=== PATIENT | male | born 1960 | race Asian ===

== ENCOUNTER 2017-12-18 13:57 | Emergency (ER) | payer OTHER ==
[2017-12-18] MEDS ORDERED: ONDANSETRON ODT 4 MG TABLET TL STA (15:05)
--- NOTE | 2017-12-18 15:07 | ED Physician Documentation ---
History of Present Illness - Stated complaint Stated Complaint: VOMITING - Chief complaint Chief Complaint: General - Additonal information Additional information: hx from pt 57 male HTN DM HLD CKD to ER with NV and bloating since yesterday after returning from [place] for his mom is having BM soime upper abd and lowee chest discomfort hx same sx last time he went to [place] doesnt think he ate anything bad no fever cough leg swelling no blood in vomit or BM no prior surgery Review of Systems Constitutional: denies: Fever, Chills Throat: denies: Sore throat Cardiac: reports: Chest pain / pressure (lower) Respiratory: denies: Dyspnea GI: reports: Abdominal Pain (upper), Nausea, Vomiting. denies: Constipation, Diarrhea, Hematemesis, Bloody / black stool : denies: Dysuria, Testicular pain Endocrine: denies: Easy bruising / bleeding Immunocompromised: denies: Immunocompromised PD PAST MEDICAL HISTORY - Present Medications Home Medications: Ambulatory Orders Medication Instructions Recorded Confirmed Aspirin [Adult Aspirin] 1 tab PO DAILY 12/18/17 12/18/17 Atenolol 3 tab PO DAILY 12/18/17 12/18/17 Lisinopril 1 tab PO DAILY 12/18/17 12/18/17 Ondansetron Odt [Zofran] 4 mg TL Q6H PRN #10 tablet 12/18/17 Simvastatin 1 tab PO DAILY 12/18/17 12/18/17 Sitagliptin Phosphate [Januvia] 1 tab PO DAILY 12/18/17 12/18/17 Sucralfate 1 gm PO ACHS #120 tablet 12/18/17 raNITIdine [Zantac] 150 mg PO BID #60 tablet 12/18/17 - Allergies Allergies/Adverse Reactions: Allergies Allergy/AdvReac Type Severity Reaction Status Date / Time No Known Drug Allergies Allergy Verified 12/18/17 14:11 PD ED PE NORMAL - Vitals Vital signs reviewed: Yes - Neck Neck: Supple, no meningeal sign - Cardiac Cardiac: RRR - Respiratory Respiratory: No respiratory distress, Clear bilaterally - Abdomen Abdomen: Soft, Other (mild upper abd TTP non focal no peritoneal sx, neg moore) - Extremities Extremities: No edema, No calf tenderness / cord - Neuro Neuro: Alert and oriented X 3, No motor deficit, No sensory deficit Results - Vitals Vitals: Vital Signs - 24 hr 12/18/17 12/18/17 12/18/17 14:08 14:56 18:13 Temperature 36.7 C 36.9 C Heart Rate 81 72 76 Respiratory 16 16 16 Rate Blood Pressure 168/96 H 163/86 H 120/76 O2 Saturation 97 96 92 Oxygen O2 Source Room air - EKG (time done) 1512 Rate: Rate (enter#) (68) Rhythm: NSR Ischemia: Other (inv T ant) - Labs Labs: Laboratory Tests 12/18/17 12/18/17 12/18/17 15:29 15:29 15:29 WBC 12.5 H RBC 5.60 Hgb 17.8 Hct 53.6 H MCV 95.7 H MCH 31.8 H MCHC 33.2 RDW 13.7 Plt Count 217 MPV 8.6 Neut # (Auto) 8.9 H Lymph # (Auto) 2.1 [place] # (Auto) 1.2 H Eos # (Auto) 0.2 Baso # (Auto) 0.1 Absolute Nucleated RBC 0.01 Nucleated RBC % 0.1 Sodium 134 L Potassium 3.9 Chloride 94 L Carbon Dioxide 28 Anion Gap 12.0 BUN 22 H Creatinine 1.3 H Estimated GFR (MDRD) 57 L Glucose 115 H Calcium 10.7 H Total Bilirubin 1.4 H AST 27 ALT 17 Alkaline Phosphatase 59 Troponin I < 0.04 Total Protein 8.8 H Albumin 4.1 Globulin 4.7 H Albumin/Globulin Ratio 0.9 L Lipase 36 - Rads (name of study) AAS Radiology: See rad report (no SBO or perf, mild R perihilar fullnes consider CT) abd sono Radiology: See rad report (nl GB, non specifc heterogenaeous liver, no mass, R hepatic cyst) Departure - Departure Disposition: 01 Home, Self Care Clinical Impression: Vomiting Qualifiers: Vomiting type: unspecified Vomiting Intractability: non-intractable Nausea presence: with nausea Qualified Code(s): R11.2 - Nausea with vomiting, unspecified Abdominal pain Qualifiers: Abdominal location: upper abdomen, unspecified Qualified Code(s): R10.10 - Upper abdominal pain, unspecified Condition: Good Instructions: ED Abdominal Pain Unkn Cause, ED Gastritis Prescriptions: Ondansetron Odt [Zofran] 4 mg TL Q6H PRN #10 tablet PRN Reason: Nausea / Vomiting raNITIdine [Zantac] 150 mg PO BID #60 tablet Sucralfate 1 gm PO ACHS #120 tablet Comments: Because the pain was upper abdomen/lower chest, we checked out your heart - the EKG and blood work do not indicate a heart attack On the xrays the abdomen was fine - no bowel blockage. But on the chest part of the xray the radiologist noticed a soft tissue density to the right of your heart - it could be a big lymph node - the radiologist recommends that your follow up with your PMD to get a CT scan if your chest for further evaluation One of your liver / gallbladder tests was a bit elevated so we got an ultrasound - the gallbladder was just fine - but the liver texture was a bit irregular so you have your PMD follow up and recheck your liver tests and maybe another ultrasound in about 6 month - and if you drink alcohol you should cut down / stop And your calcium level is also elevated and that is something that also needs follow up with your PMD Given the reassuring work up it does not seem you need surgery or admission. I suspect the symptoms could be gastritis or an early ulcer - this can occur in stressful situations like the of a family member. I have prescribed medications to help this. Please follow up with your PMD for a recheck - if the symptoms persist despite the medication you may need a referral to get a scope of your stomach Return to the ER if worse
[2017-12-18 15:37] LABS: BASOPHILS # (AUTO) 0.1 10^3/uL (0.0-0.1); BASOPHILS % (AUTO) 0.6 %; EOSINOPHILS # (AUTO) 0.2 10^3/uL (0.0-0.7); EOSINOPHILS % (AUTO) 1.4 %; HGB - HEMOGLOBIN 17.8 g/dL (14.0-18.0); LYMPHOCYTES # (AUTO) 2.1 10^3/uL (1.5-3.5); LYMPHOCYTES % (AUTO) 16.6 %; MEAN CORPUSCULAR HEMOGLOBIN 31.8 pg (27.0-31.0); MEAN CORPUSCULAR HGB CONC 33.2 g/dL (32.0-36.0); MEAN CORPUSCULAR VOLUME 95.7 fL (80.0-94.0); MEAN PLATELET VOLUME 8.6 fL (7.4-11.4); MONOCYTES # (AUTO) 1.2 10^3/uL (0.0-1.0); MONOCYTES % (AUTO) 9.8 %; NEUTROPHILS # (AUTO) 8.9 10^3/uL (1.5-6.6); NEUTROPHILS % (AUTO) 71.6 %; PLT - PLATELET COUNT 217 10^3/uL (130-450); RED CELL DISTRIBUTION WIDTH 13.7 % (12.0-15.0); WHITE BLOOD COUNT 12.5 x10^3/uL (4.8-10.8)
[2017-12-18 15:57] LABS: ALBUMIN 4.1 g/dL (3.2-5.5); ALBUMIN/GLOBULIN RATIO 0.9 (1.0-2.2); BILIRUBIN,TOTAL 1.4 mg/dL (0.2-1.0); CALCIUM 10.7 mg/dL (8.5-10.3); CREATININE 1.3 mg/dL (0.6-1.2); TOTAL PROTEIN 8.8 g/dL (6.7-8.2)
--- NOTE | 2017-12-18 16:13 | XRAY Report ---
EXAM: ABDOMINAL SERIES AND PA CHEST EXAM DATE: 12/18/2017 04:05 PM. CLINICAL HISTORY: Vomiting with bloating sensation. COMPARISON: None. TECHNIQUE: 2 views abdomen and 1 view chest. FINDINGS: CHEST: Lungs/Pleura: Mild atelectatic changes seen at the left base, less likely infiltrate. Mediastinum: There is mild soft tissue fullness about the right hilar region. Cardiac silhouette kris sly within normal limits. ABDOMEN: Bowel Gas Pattern: Within normal limits. No dilated loops or abnormal fluid levels. Free Air: None. Other: None. IMPRESSION: 1. Mild left basilar atelectatic changes, less likely infiltrate. 2. Mild soft tissue fullness about the right hilar region. CT scan of the chest recommended for [facility] er evaluation if clinically indicated. 3. Unremarkable abdomen. [facility] Referring Provider Line: [phone] SITE ID: [id number]
--- NOTE | 2017-12-18 19:18 | Ultrasound Report ---
EXAM: ABDOMEN ULTRASOUND LIMITED, RUQ EXAM DATE: 12/18/2017 06:43 PM. CLINICAL HISTORY: Abdominal pain with vomiting. COMPARISON: None. TECHNIQUE: Real-time scanning was performed with static images obtained. FINDINGS: Liver: There is heterogeneous echotexture. Hepatic span is 13 cm. Main portal vein flow: Hepatopetal. Gallbladder: Normal. No stones, wall thickening, or sonographic Tuttle's sign. Biliary System: CBD measures 5 mm. Right kidney is noted to span 9.6 cm, with a 0.8 cm cyst present. Other: Pancreas is obscured by bowel gas. IMPRESSION: 1. Nonspecific heterogeneous echotexture noted in the liver, without obvious mass. 2. Right hepatic cyst, otherwise unremarkable exam. [facility] Referring Provider Line: [phone] SITE ID: [id number]
[2017-12-18 20:22] VITALS: BP 108/59
== END 2017-12-18 20:22 | disposition home or self-care (01) ==
LOC: ED 13:57
DX: R11.2 Nausea with vomiting, unspecified (principal); R10.10 Upper abdominal pain, unspecified; R07.9 Chest pain, unspecified; E78.5 Hyperlipidemia, unspecified; I12.9 Hypertensive chronic kidney disease with stage 1 through stage 4 chronic kidney disease, or unspecified chronic kidney disease; E11.22 Type 2 diabetes mellitus with diabetic chronic kidney disease; N18.9 Chronic kidney disease, unspecified; Z79.84 Long term (current) use of oral hypoglycemic drugs; Z79.82 Long term (current) use of aspirin
CPT/HCPCS: 36415; 74022; 76705; 80053; 83690; 84484; 85025; 93005; 99283; Q0162

== ENCOUNTER 2019-04-16 18:16 | Emergency (ER) | payer OTHER ==
--- NOTE | 2019-04-16 20:19 | XRAY Report ---
Reason: productive cough, chills Procedure Date: 04/16/2019 Accession Number: [id number] / [id number] Procedure: XR - Chest 2 View X-Ray CPT Code: 37924 FULL RESULT: EXAM: CHEST RADIOGRAPHY EXAM DATE: 04/16/2019 07:37 PM. CLINICAL HISTORY: Productive cough, chills. COMPARISON: ABDOMEN ACUTE 12/18/2017 3:41 PM. TECHNIQUE: 2 views. FINDINGS: Lungs/Pleura: New mild right base lower lobe airspace disease with bronchial wall thickening, could represent a bronchial pneumonia. No pleural effusion or pneumothorax. Hyperinflated lungs. Mediastinum: Heart size within normal limits. Right hilar opacification, could represent enlarged pulmonary artery versus hilar mass, appears similar to the prior. Correlate clinically. A chest CT could further evaluate as clinically indicated. IMPRESSION: Lungs/Pleura: New mild right base lower lobe airspace disease with bronchial wall thickening, could represent a bronchial pneumonia. No pleural effusion or pneumothorax. Hyperinflated lungs. Mediastinum: Heart size within normal limits. Right hilar opacification, could represent enlarged pulmonary artery versus hilar mass, appears similar to the prior. Correlate clinically. A chest CT could further evaluate as clinically indicated. [facility]
[2019-04-16] MEDS ORDERED: cefTRIAXone 2 GM VIAL IVP STA (20:55)
[2019-04-16] MEDS ORDERED: AZITHROMYCIN 250 MG TABLET PO STA (20:55)
--- NOTE | 2019-04-16 21:08 | ED Physician Documentation ---
PD HPI DYSPNEA - Stated complaint Stated Complaint: CONGESTION - Chief complaint Chief Complaint: Resp - History obtained from History obtained from: Patient, Family - History of Present Illness Timing - onset: How many days ago (2) Timing - onset during: Rest Timing - duration: Days (2) Timing - details: Gradual onset Severity Comments: moderate shortness of breath and cough Inciting event(s): Other (unknown) Worsened by: Coughing Associated symptoms: Cough. No: Fever, Hemoptysis, Wheezing, Chest pain / discomfort, Palpitations, Diaphoresis, Bilateral edema, Unilateral edema Similar symptoms before: Has not had sx before Recently seen: Not recently seen - Treatment prior to arrival Treatment prior to arrival: none - Additional information Additional information: Pt reports hx of diabetes, he is an active smoker but no hx of lung disease. Has 2 days of a productive cough, no hemoptysis. Does not use home O2 for any reason. Denies leg pain or swelling. Denies abdominal pain, nausea, vomiting or diarrhea. Review of Systems Ten Systems: 10 systems reviewed and negative Constitutional: reports: Fatigue. denies: Fever, Chills Nose: denies: Rhinorrhea / runny nose, Congestion Throat: denies: Sore throat Cardiac: denies: Chest pain / pressure, Pedal edema, Calf pain Respiratory: reports: Dyspnea, Cough. denies: Hemoptysis, Wheezing GI: denies: Abdominal Pain, Nausea, Vomiting Skin: reports: Reviewed and negative Musculoskeletal: reports: Reviewed and negative Neurologic: reports: Reviewed and negative Immunocompromised: reports: Other (diabetic) PD PAST MEDICAL HISTORY - Past Medical History Past Medical History: No Cardiovascular: Hypertension, High cholesterol Respiratory: None Neuro: None Endocrine/Autoimmune: Type 2 diabetes GI: GERD : None HEENT: None Psych: None Musculoskeletal: None Derm: None - Past Surgical History Past Surgical History: No - Present Medications Home Medications: Ambulatory Orders Medication Instructions Recorded Confirmed Aspirin [Adult Aspirin] 1 tab PO DAILY 12/18/17 12/18/17 Atenolol 3 tab PO DAILY 12/18/17 12/18/17 Lisinopril 1 tab PO DAILY 12/18/17 12/18/17 Ondansetron Odt [Zofran] 4 mg TL Q6H PRN #10 tablet 12/18/17 Simvastatin 1 tab PO DAILY 12/18/17 12/18/17 Sitagliptin Phosphate [Januvia] 1 tab PO DAILY 12/18/17 12/18/17 Sucralfate 1 gm PO ACHS #120 tablet 12/18/17 raNITIdine [Zantac] 150 mg PO BID #60 tablet 12/18/17 Amox/Clav 875/125 [Augmentin] 1 each PO Q12H #20 tablet 04/16/19 Azithromycin [Zithromax] 0 mg PO DAILY #4 tablet 04/16/19 - Allergies Allergies/Adverse Reactions: Allergies Allergy/AdvReac Type Severity Reaction Status Date / Time No Known Drug Allergies Allergy Verified 12/18/17 14:11 - Social History Does the pt smoke?: Yes Smoking Status: Current every day smoker Does the pt drink ETOH?: No Does the pt have substance abuse?: No - Immunizations Immunizations are current?: Yes - POLST Patient has POLST: No PD ED PE NORMAL - Vitals Vital signs reviewed: Yes - General General: Alert and oriented X 3, No acute distress, Well developed/nourished - HEENT HEENT: Atraumatic - Neck Neck: Supple, no meningeal sign - Cardiac Cardiac: No murmur, No gallop, No rub, Strong equal pulses, Other (tachycardic, regular rate) - Respiratory Respiratory: No respiratory distress, Other (moderate tachypnea, RLL rales present, no wheezes or rhonchi ) - Abdomen Abdomen: Soft, Non tender, Non distended - Male Male : Deferred - Rectal Rectal: Deferred - Derm Derm: Normal color, No rash - Extremities Extremities: No deformity, No edema - Neuro Neuro: Alert and oriented X 3 Eye Opening: Spontaneous Motor: Obeys Commands Verbal: Oriented GCS Score: 15 - Psych Psych: Normal mood, Normal affect Results - Vitals Vitals: Oxygen O2 Source Room air - Labs Labs: Microbiology 04/16/19 21:06 Blood Culture - Preliminary Blood - Left Iv Start NO GROWTH AFTER 1 DAY 04/16/19 21:12 Blood Culture - Preliminary Blood - Right Arm NO GROWTH AFTER 1 DAY Laboratory Tests 04/16/19 04/16/19 04/16/19 21:12 21:12 21:12 WBC 8.6 RBC 5.76 Hgb 18.6 H Hct 54.7 H MCV 95.0 H MCH 32.3 H MCHC 34.0 RDW 13.1 Plt Count 166 MPV 9.4 Neut # (Auto) 5.7 Lymph # (Auto) 1.7 [place] # (Auto) 0.8 Eos # (Auto) 0.2 Baso # (Auto) 0.1 Absolute Nucleated RBC 0.00 Nucleated RBC % 0.0 Sodium 131 L Potassium 4.2 Chloride 97 L Carbon Dioxide 24 Anion Gap 10.0 BUN 16 Creatinine 1.2 Estimated GFR (MDRD) 62 L Glucose 120 H Lactic Acid 1.0 Calcium 8.7 hyponatremia, no leukocytosis moderate dehydration, normal lactate - Rads (name of study) CXR Radiology: Final report received, See rad report PD MEDICAL DECISION MAKING - ED course Complexity details: reviewed old records, reviewed results, re-evaluated patient, considered differential, d/w patient, d/w family ED course: ddx - bronchitis, pneumonia, URI, pleural effusion, sepsis 59 y/o M diabetic with productive cough, sob, mild hypoxia. CXR shows obvious pneumonia. Labs however not c/w sepsis. Pt has improved here with some fluids, duoneb and antibiotics. His CURB 65 score is a 1 and he appears stable for outpt management of community acquired pneumonia. Discussed plan of care with pt and family. He will f/u with PCP for a recheck of his status. Discussed return precautions if worsening sob or other new concerning symptoms. Departure - Departure Disposition: 01 Home, Self Care Clinical Impression: Community acquired pneumonia Qualifiers: Laterality: right Lung location: lower lobe of lung Qualified Code(s): J18.1 - Lobar pneumonia, unspecified organism Condition: Stable Record reviewed to determine appropriate education?: Yes Instructions: Pneumonia Dc Follow-Up: your, doctor [Other] - Within 1 week (recheck your symptoms ) Prescriptions: Amox/Clav 875/125 [Augmentin] 1 each PO Q12H #20 tablet Azithromycin [Zithromax] 0 mg PO DAILY #4 tablet Comments: Your chest xray and labs today suggested a pneumonia. You should take both prescribed antibiotics until completed. Return to the ED if you develop worsening shortness of breath or new concerning symptoms. Otherwise follow up with your regular doctor to recheck your symptoms. Discharge Date/Time: 04/16/19 23:29
[2019-04-16] MEDS ORDERED: IPRATROPIUM/ALBUTEROL 3 ML NEB INH STA (21:09)
[2019-04-16 21:17] LABS: BASOPHILS # (AUTO) 0.1 10^3/uL (0.0-0.1); BASOPHILS % (AUTO) 0.8 %; EOSINOPHILS # (AUTO) 0.2 10^3/uL (0.0-0.7); EOSINOPHILS % (AUTO) 2.8 %; HGB - HEMOGLOBIN 18.6 g/dL (14.0-18.0); LYMPHOCYTES # (AUTO) 1.7 10^3/uL (1.5-3.5); MEAN CORPUSCULAR HEMOGLOBIN 32.3 pg (27.0-31.0); MEAN PLATELET VOLUME 9.4 fL (7.4-11.4); MONOCYTES # (AUTO) 0.8 10^3/uL (0.0-1.0); MONOCYTES % (AUTO) 9.4 %; NEUTROPHILS # (AUTO) 5.7 10^3/uL (1.5-6.6); NEUTROPHILS % (AUTO) 66.4 %; PLT - PLATELET COUNT 166 10^3/uL (130-450); RED BLOOD COUNT 5.76 10^6/uL (4.70-6.10); RED CELL DISTRIBUTION WIDTH 13.1 % (12.0-15.0); WHITE BLOOD COUNT 8.6 x10^3/uL (4.8-10.8)
[2019-04-16 21:27] LABS: CALCIUM 8.7 mg/dL (8.5-10.3); CREATININE 1.2 mg/dL (0.6-1.2)
[2019-04-16] MEDS ORDERED: SODIUM CHLORIDE 0.9% 1,000 ML IV ONE ×2 (21:59→22:17)
[2019-04-16 23:25] VITALS: BP 133/88
== END 2019-04-16 23:29 | disposition home or self-care (01) ==
LOC: ED 18:16
DX: J18.1 Lobar pneumonia, unspecified organism (principal); I10 Essential (primary) hypertension; E11.9 Type 2 diabetes mellitus without complications; F17.200 Nicotine dependence, unspecified, uncomplicated; Z79.84 Long term (current) use of oral hypoglycemic drugs
CPT/HCPCS: 36415; 71046; 80048; 83605; 85025; 87040; 94640; 94664; 96361; 96374; 99284; A9270

== ENCOUNTER 2024-03-23 07:22 | Outpatient (CLI) | payer MEDICARE, OTHER ==
[2024-03-23 12:36] LABS: BASOPHILS # (AUTO) 0.1 10^3/uL (0.0-0.1); EOSINOPHILS # (AUTO) 0.4 10^3/uL (0.0-0.7); EOSINOPHILS % (AUTO) 4.5 %; HCT - HEMATOCRIT 54.9 % (42.0-52.0); HGB - HEMOGLOBIN 17.7 g/dL (14.0-18.0); LYMPHOCYTES # (AUTO) 2.9 10^3/uL (1.5-3.5); LYMPHOCYTES % (AUTO) 32.7 %; MEAN CORPUSCULAR HEMOGLOBIN 30.3 pg (27.0-31.0); MEAN CORPUSCULAR HGB CONC 32.2 g/dL (32.0-36.0); MEAN PLATELET VOLUME 9.9 fL (7.4-11.4); MONOCYTES # (AUTO) 0.9 10^3/uL (0.0-1.0); MONOCYTES % (AUTO) 9.9 %; NEUTROPHILS # (AUTO) 4.6 10^3/uL (1.5-6.6); NEUTROPHILS % (AUTO) 51.6 %; PLT - PLATELET COUNT 209 10^3/uL (130-450); RED BLOOD COUNT 5.84 10^6/uL (4.70-6.10); RED CELL DISTRIBUTION WIDTH 13.2 % (12.0-15.0); WHITE BLOOD COUNT 8.9 x10^3/uL (4.8-10.8)
[2024-03-23 13:06] LABS: ALBUMIN 3.8 g/dL (3.2-5.5); ALBUMIN/GLOBULIN RATIO 0.9 (1.0-2.2); ALKALINE PHOSPHATASE 65 IU/L (42-121); ALT ALANINE AMINOTRANSFERASE 13 IU/L (10-60); AST ASPARTATE AMINOTRANSFERASE 19 IU/L (10-42); BILIRUBIN,TOTAL 0.8 mg/dL (0.2-1.0); BUN - BLOOD UREA NITROGEN 22 mg/dL (6-20); CALCIUM 8.9 mg/dL (8.5-10.3); CARBON DIOXIDE - CO2 26 mmol/L (21-32); CHLORIDE 101 mmol/L (101-111); CHOL/HDL RATIO 2.9 (<5.0); CHOLESTEROL 88 mg/dL; CREATININE 1.4 mg/dL (0.6-1.3); GFR - MDRD 51 (>89); GLUCOSE 146 mg/dL (74-104); HDL CHOLESTEROL 30 mg/dL; LDL CHOLESTEROL,CALCULATED 39 mg/dL; LDL/HDL RATIO 1.3 (<3.6); POTASSIUM 4.2 mmol/L (3.5-4.5); SODIUM 133 mmol/L (135-145); TOTAL PROTEIN 7.9 g/dL (6.4-8.9); TRIGLYCERIDES 95 mg/dL; VLDL CHOLESTEROL 19 mg/dL
[2024-03-23 13:17] LABS: ESTIMATED AVERAGE GLUCOSE 160 mg/dL (70-100); HEMOGLOBIN A1c% 7.2 % (4.27-6.07)
[2024-03-23 13:21] LABS: THYROID STIMULATING HORMONE 1.36 uIU/mL (0.34-5.60)
== END 2024-03-23 07:23 | disposition home or self-care (01) ==
LOC: LAB.N 07:22
DX: R73.03 Prediabetes (principal); Z12.5 Encounter for screening for malignant neoplasm of prostate; Z79.899 Other long term (current) drug therapy
CPT/HCPCS: 36415; 80053; 80061; 83036; 84443; 85025; G0103; 83721; 84153